=== PATIENT | male | born 1985 | race Caucasian/White ===

== ENCOUNTER 2024-05-03 09:23 | Emergency (ER) | payer SELFPAY ==
[~2024-05-03] VITALS: Ht 172.7 cm; Wt 77.1 kg
[2024-05-03 09:35] VITALS: O2SAT 99
[2024-05-03] MEDS: OXYCODONE HCL/ACETAMINOPHEN 5/325MG TABLET PO STA (09:57)
[2024-05-03] MEDS ORDERED: OXYC-100 MT (10:50)
[2024-05-03 11:18] VITALS: BP 135/88; PULSE 74; RESP 18; TEMP 36.9; O2SAT 99
== END 2024-05-03 11:54 | disposition home or self-care (01) ==
LOC: ER 09:23
DX: S97.80XA Crushing injury of unspecified foot, initial encounter (principal); J45.909 Unspecified asthma, uncomplicated; W23.0XXA Caught, crushed, jammed, or pinched between moving objects, initial encounter; Y93.89 Activity, other specified; Y92.89 Other specified places as the place of occurrence of the external cause; Y99.8 Other external cause status
CPT/HCPCS: 73610; 73620; 99284; Z7610 ×2